=== PATIENT | male | born 1950 | race Caucasian/White ===

== ENCOUNTER 2025-05-11 09:14 | Emergency (ER) | payer BC ==
[~2025-05-11] VITALS: Ht 167.6 cm; Wt 81.8 kg
[2025-05-11 09:16] VITALS: TEMP 98.2
[2025-05-11] MEDS: hydrALAZINE 20mg/ml inj. IV ONE (10:38)
--- NOTE | 2025-05-11 11:03 | Physician Documentation ---
History of Present Illness ~ Chief Complaint: Mechanical Fall Stated Complaint: RIB PAIN Time Seen by MD: 10:12 HPI This 74-year-old male presents today after having a fall injuring his left ribs and his right hip and left leg. States he has developed bruising and swelling in his left upper leg denies head strike use a blood thinners Day of Fall: May 11, 2025 Medication Reconciliation Allergies: Uncoded Allergies: PEANUTS (Allergy, Unknown, 05/11/25) Scheduled PRN Hydrocodone Bit/Acetaminophen 5/325 MG ([place] 5/325 MG), 1 TAB PO Q6H PRN for pain Physical Exam Vital Signs: Temperature: 98.2, Source: Temporal, Heart Rate: 76, Respiratory Rate: 18, BP: 213/130, Pulse Oximetry: 96, Weight: 81.820 Oxygen Flow Rate: 0 Physical Exam General: Alert, no apparent distress. Neck: Full range of motion. Respiratory: Lungs clear, no respiratory distress. Chest: No accessory muscle use. Left rib tenderness via palpation Extremities: Normal range of motion, no deformity. Swelling in the left upper leg/ hip with developing ecchymosis Neurologic: Oriented x4. Psychiatric: Normal mood and affect. Skin: Normal color, warm and dry. No edema, no ecchymosis. Progress Results/Orders Results/Orders Orders - NATHEN LU LINE LEADER Hip Unilateral 2 Views (05/11/25 10:37) Ribs,Unilat (05/11/25 10:37) Gait Test (05/11/25 11:52) Reassess Pt For Discharge (05/11/25 11:52) Completed Orders - NATHEN LU LINE LEADER Hydralazine Inj. (Apresoline Inj.) (05/11/25 10:25) Hip Unilateral 2 Views (05/11/25 10:37) Ribs,Unilat (05/11/25 10:37) Hydrocodone/Apap 10/325 ([place] 10/325mg (05/11/25 11:05) Hydralazine Inj. (Apresoline Inj.) (05/11/25 12:35) Medications Received in ER Medications (Trade) Dose Ordered Sig/Britney Route PRN Reason Start Time Stop Time Status Last Admin Dose Admin (Apresoline inj.) 10 mg ONCE ONCE IV 05/11/25 10:25 05/11/25 10:27 DC 05/11/25 10:38 10 MG ([place] 10/325mg tab) 1 tab ONCE ONCE PO 05/11/25 11:05 05/11/25 11:06 DC 05/11/25 11:43 1 TAB Vital Signs 05/11/25 05/11/25 05/11/25 05/11/25 09:16 10:22 10:38 11:15 Temp 98.2 Pulse 90 80 76 80 Resp 16 18 18 B/P (MAP) 182/95 190/130 (150) 176/90 (118) Pulse Ox 98 96 97 O2 Flow Rate 0 0 05/11/25 05/11/25 05/11/25 05/11/25 11:38 12:15 12:31 12:43 Pulse 81 79 Resp 18 18 B/P (MAP) 180/100 (126) 197/96 (129) 111/66 (81) Pulse Ox 98 94 O2 Flow Rate 0 0 05/11/25 13:52 Pulse 84 Resp 16 B/P (MAP) 150/79 Pulse Ox 95 Medical Decision Making Findings By interpretation of the patient's rib x-ray fractures of both the 6th and 7th ribs. Not see any acute fractures on patient's left hip x-ray over 80 suspected notable hematoma based on my physical exam. Differential Dx:Considerations: Include: Closed head injury, Cardiac injury, Fracture(s), Intraabdominal injury, Pneumothorax, Cerebral contusion, Pulmonary contusion, Spine injury, Tracheal injury, Urological injury, Vascular injury, Abrasion(s), Contusion(s), Foreign body(s), Hematoma(s), Laceration(s), Encephalopathy, Other Departure Disposition: 01 HOME / SELF CARE / HOMELESS Impression: Primary Impression: Fall Additional Impression: Rib pain Discharge Instructions: Fall Prevention in the Home, Adult, [id number], Rib Fracture Additional Instructions: Discussed with the you you have two rib fractures on the left side avoiding pneumonia should be the of the utmost prior any. Uses your 's spirometer 4+ times daily. Any worsening symptoms that you are concerned about please feel free to return to the ED Referrals: NO PRIMARY CARE PROVIDER (PCP) Prescriptions Hydrocodone Bit/Acetaminophen 5/325 MG ([place] 5/325 MG) 5 Mg/325 Mg Tablet 1 TAB PO Q6H PRN for pain, #14 TAB Prov: NATHEN LU NP 05/11/25 Signature Scribe Signature: k Attestation: Scribed for Nathen Lu Resident Service Coordinator by Nathen Floyd NP . 05/11/25 16:31 NATHEN LU NP May 11, 2025 11:03
--- NOTE | 2025-05-11 11:19 | RADIOLOGY REPORT ---
CLINICAL INDICATION: HIP PAIN TECHNIQUE: AP view of the pelvis and AP and frogleg lateral views of the left hip were performed. DI HIP UNILATERAL 2 VIEWS Comparison: None FINDINGS/IMPRESSION: 1. No acute fracture of the pelvis or hips. 2. No significant degenerative changes of the hips. There are mild degenerative changes of the bilate ral sacroiliac joints.
--- NOTE | 2025-05-11 11:26 | RADIOLOGY REPORT ---
CHEST RADIOGRAPH Indication: HIP PAIN Technique: DI RIBS,UNILAT Comparison: None FINDINGS: The cardiac silhouette is unremarkable. The lungs demonstrate no pulmonary airspace consolidation. Th e pulmonary vasculature is unremarkable. There is no pleural effusion. There is no pneumothorax. Acute fracture of the left lateral 7th rib. Acute fracture of the posterior left 6th rib. IMPRESSION: Acute fracture of the left lateral 7th rib. Acute fracture of the posterior left 6th rib No pulmonary airspace consolidation.
[2025-05-11] MEDS: HYDROcodone/acetaminophen 10/325mg tab PO ONE (11:43)
[2025-05-11] MEDS ORDERED: HYDR-3965 PO (11:48)
[2025-05-11] MEDS ORDERED: hydrALAZINE 20mg/ml inj. IV ONE (12:35)
[2025-05-11 13:52] VITALS: BP 150/79; PULSE 84; RESP 16; O2SAT 95
== END 2025-05-11 13:53 | disposition home or self-care (01) ==
LOC: ER 09:15
DX: R07.81 Pleurodynia (principal); M25.552 Pain in left hip; W19.XXXA Unspecified fall, initial encounter; Y93.89 Activity, other specified; Y92.89 Other specified places as the place of occurrence of the external cause; Y99.8 Other external cause status
CPT/HCPCS: 71100; 73502; 96374; 99285; J0360